=== PATIENT | male | born 1990 | race Two or more races ===

== ENCOUNTER 2023-06-18 17:31 | Emergency (ER) | payer OTHER ==
[~2023-06-18] VITALS: Ht 177.8 cm; Wt 59.4 kg
[2023-06-18 18:41] VITALS: BP 131/81; TEMP 98.5; O2SAT 100
== END 2023-06-18 18:42 | disposition left against medical advice (07) ==
LOC: ER 17:34
DX: R52 Pain, unspecified (principal); Z53.21 Procedure and treatment not carried out due to patient leaving prior to being seen by health care provider

== ENCOUNTER 2023-06-18 19:40 | Emergency (ER) | payer OTHER ==
[~2023-06-18] VITALS: Ht 177.8 cm; Wt 59.4 kg
[2023-06-18 19:45] VITALS: BP 136/87; TEMP 98; O2SAT 99
== END 2023-06-18 20:30 | disposition left against medical advice (07) ==
LOC: ER 19:41
DX: R46.1 Bizarre personal appearance (principal); Z53.21 Procedure and treatment not carried out due to patient leaving prior to being seen by health care provider

== ENCOUNTER 2023-06-18 21:22 | Emergency (ER) | payer OTHER ==
[~2023-06-18] VITALS: Ht 177.8 cm; Wt 59.0 kg
[2023-06-18 21:27] VITALS: TEMP 98.5
[2023-06-18] MEDS ORDERED: OLANZAPINE 5 MG TABLET ONE (22:12)
[2023-06-18] MEDS: OLANZAPINE 5 MG TABLET PO ONE (22:19)
[2023-06-19 02:06] VITALS: BP 129/81; O2SAT 97
== END 2023-06-19 02:07 ==
LOC: ER 21:24
DX: S09.8XXA Other specified injuries of head, initial encounter (principal); F20.9 Schizophrenia, unspecified; Z59.00 Homelessness unspecified; X58.XXXA Exposure to other specified factors, initial encounter; Y93.89 Activity, other specified; Y92.89 Other specified places as the place of occurrence of the external cause; Y99.8 Other external cause status
CPT/HCPCS: 70160-TC